=== PATIENT | male | born 1985 | race American Indian/Alaskan Native ===

== ENCOUNTER 2016-12-14 00:16 | Emergency (ER) | payer SELFPAY ==
[2016-12-14 00:27] VITALS: BP 128/68; RESP 20; TEMP 98.4; O2SAT 100
[2016-12-14] MEDS ORDERED: Tetracaine 0.5% Ophth (OR ONLY) ONE (00:49)
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
[2016-12-14] MEDS ORDERED: Tetracaine 0.5% Ophth 2 ML BOTTLE OU ONE (01:06)
[2016-12-14 02:05] VITALS: PULSE 76
== END 2016-12-14 02:04 | disposition home or self-care (01) ==
LOC: C.ER 00:16
DX: H57.8 Other specified disorders of eye and adnexa (principal)